=== PATIENT | female | born 1975 | race Caucasian/White ===

== ENCOUNTER → 2017-01-16 10:45 | Emergency (ER) | payer BC, OTHER ==
[~2017-01-16 10:45] MED LIST: Acetaminophen TAB* 325 MG PO ONE; Ketorolac INJ* 30 MG/ML 1 ML VIAL IV PUSH ONE; NS 0.9% 1000 ML* 1,000 ML IV ONE; Ondansetron INJ* 2 MG/ML VIAL IV ONE; Potassium Chlor TAB* 20 MEQ TAB.ER PO ONE; cefTRIAXone(*) 1 GM ADVAN ONE; cefTRIAXone(*) 1 GM in NS 0.9% 50 ML* 50 ML IVPB ONE
[2017-01-16] MEDS: NS 0.9% 1000 ML* 2,000 ML IV ONE ×2 (12:19→13:40)
[2017-01-16 12:54] LABS: Hematocrit 37 % (35-47); Hemoglobin 12.2 g/dl (12.0-16.0); Mean Corpuscular HGB Conc 33 g/dl (31-36); Mean Corpuscular Hemoglobin 30 pg (27-31); Mean Corpuscular Volume 91 fL (80-97); Mean Platelet Volume 8 um3 (7.4-10.4); Red Blood Count 4.05 10^6/ul (4.0-5.4); Red Cell Distribution Width 13 % (10.5-15); White Blood Count 15.8 10^3/ul (3.5-10.8)
--- NOTE | 2017-01-16 12:58 | RAD ---
Indication: Cough. Single frontal view of the chest performed at 1240 hours was reviewed. No prior study is available for comparison. No mediastinal shift is noted. Heart is of normal size and configuration. Lung sharma appear clear. IMPRESSION: NO ACTIVE CARDIOPULMONARY DISEASE IS NOTED.
[2017-01-16 13:06] LABS: BUN/Creatinine Ratio 16.7 (8-20); C Reactive Protein 208.4 mg/L (< 5.00); Calcium 8.7 mg/dL (8.6-10.3); EGFR African American 89.2 (>60); EGFR Non-African American 69.3 (>60); Globulin 3.3 g/dL (2-4); Potassium 3.4 mmol/L (3.5-5.0); Total Bilirubin 0.8 mg/dL (0.2-1.0); Total Protein 7.3 g/dL (6.4-8.9)
[2017-01-16 14:49] LABS: Urine Bacteria 1+ (Absent); Urine Bilirubin Negative (Negative); Urine Glucose Negative (Negative); Urine Nitrite Positive (Negative)
[2017-01-16 16:48] VITALS: BP 103/60
--- NOTE | 2017-01-17 17:50 | ED ---
Zuleima Nesbitt Edward, scribed for Nicola Hamm MD on 01/16/17 at 1143 . Influenza-Like Illness - HPI Summary HPI Summary: 41 y/o female presents to ED with influenza-like symptoms that have lasted over 1 week. Symptoms include fever, productive cough, bilateral abd pain, body aches , chills, loss of appetite, N/V. Patient took ibuprofen which relieved her chills temporarily but induced vomiting. Denies sore throat and ear pain. - History of Current Complaint Chief Complaint: EDFluSymptoms Time Seen by Provider: 01/16/17 11:33 Hx Obtained From: Patient Onset/Duration: Lasting Weeks - 1 week, Still Present Severity: Severe Associated Signs & Symptoms: Fever, Cough - Productive (phlegm), Vomiting - Allergy/Home Medications Allergies/Adverse Reactions: Allergies Allergy/AdvReac Type Severity Reaction Status Date / Time No Known Allergies Allergy Verified 01/16/17 12:50 PMH/Surg Hx/FS Hx/Imm Hx Endocrine/Hematology History: Denies: Hx Diabetes Cardiovascular History: Denies: Hx Congestive Heart Failure, Hx Hypertension, Hx Myocardial Infarction Respiratory History: Reports: Hx Asthma Infectious Disease History: Denies: Traveled Outside the [place] in Last 30 Days - Family History Known Family History: Negative: Diabetes - Social History Occupation: Employed Full-time Lives: With Family Alcohol Use: Occasionally Hx Substance Use: No Review of Systems Positive: Fever, Chills, Other - Loss of appetite Eyes: Negative ENT: Negative Negative: Sore Throat, Ear Ache Cardiovascular: Negative Positive: Cough - Productive (phlegm) Positive: Abdominal Pain - bilateral, Vomiting, Nausea Genitourinary: Negative Positive: Myalgia - Diffuse body aches Skin: Negative Neurological: Negative Psychological: Normal All Other Systems Reviewed And Are Negative: Yes Physical Exam - Summary Physical Exam Summary: VITAL SIGNS:~Reviewed. GENERAL:~ Patient is a well-developed and nourished female who is lying comfortable in the stretcher.~ Patient is not in any acute respiratory distress. Looks nauseous, dehydrated. HEAD AND FACE:~No signs of trauma.~ No ecchymosis, hematomas or skull depressions. No sinus tenderness. Rhinorrhea. Dry mucosa. Flushed in the face. EYES:~PERRLA, EOMI x 2, No injected conjunctiva, no nystagmus. EARS:~Hearing grossly intact. Ear canals and tympanic membranes are within normal limits. MOUTH:~Oropharynx within normal limits. NECK:~Supple, trachea is midline, no adenopathy, no JVD, no carotid bruit, no c- spine tenderness, neck with full ROM. CHEST:~Symmetric, no tenderness at palpation LUNGS:~Clear to auscultation bilaterally. No wheezing or crackles. CVS:~Regular rate and rhythm, S1 and S2 present, no murmurs or gallops appreciated. ABDOMEN:~Soft, non-tender. No signs of distention. No rebound no guarding, and no masses palpated. Bowel sounds are normal. EXTREMITIES:~FROM in all major joints, no edema, no cyanosis or clubbing. NEURO:~Alert and oriented x 3. No acute neurological deficits. Speech is normal and follows commands. SKIN:~Dry and warm Triage Information Reviewed: Yes Vital Signs On Initial Exam: Initial Vitals Temp Pulse Resp BP 100.8 F 113 20 119/68 01/16/17 10:48 01/16/17 10:48 01/16/17 10:48 01/16/17 10:48 Vital Signs Reviewed: Yes Diagnostics - Vital Signs Vital Signs Temp Pulse Resp BP Pulse Ox 01/16/17 10:52 100.2 F 117 20 119/68 99 01/16/17 10:48 100.8 F 113 20 119/68 - Laboratory Lab Results: Lab Results 01/16/17 01/16/17 01/16/17 Range/Units 11:43 12:25 12:25 WBC 15.8 H (3.5-10.8) 10^3/ul RBC 4.05 (4.0-5.4) 10^6/ul Hgb 12.2 (12.0-16.0) g/dl Hct 37 (35-47) % MCV 91 (80-97) fL MCH 30 (27-31) pg MCHC 33 (31-36) g/dl RDW 13 (10.5-15) % Plt Count 223 (150-450) 10^3/ul MPV 8 (7.4-10.4) um3 Neut % (Auto) 87.1 H (38-83) % Lymph % (Auto) 5.9 L (25-47) % Jasper % (Auto) 6.7 (1-9) % Eos % (Auto) 0.1 (0-6) % Baso % (Auto) 0.2 (0-2) % Absolute Neuts (auto) 13.8 H (1.5-7.7) 10^3/ul Absolute Lymphs (auto) 0.9 L (1.0-4.8) 10^3/ul Absolute Monos (auto) 1.1 H (0-0.8) 10^3/ul Absolute Eos (auto) 0 (0-0.6) 10^3/ul Absolute Basos (auto) 0 (0-0.2) 10^3/ul Absolute Nucleated RBC 0.01 10^3/ul Nucleated RBC % 0 Sodium 134 (133-145) mmol/L Potassium 3.4 L (3.5-5.0) mmol/L Chloride 102 (101-111) mmol/L Carbon Dioxide 24 (22-32) mmol/L Anion Gap 8 (2-11) mmol/L BUN 15 (6-24) mg/dL Creatinine 0.90 (0.51-0.95) mg/dL Est GFR ( Amer) 89.2 (>60) Est GFR (Non-Af Amer) 69.3 (>60) BUN/Creatinine Ratio 16.7 (8-20) Glucose 106 H (70-100) mg/dL Lactic Acid (0.5-2.0) mmol/L Calcium 8.7 (8.6-10.3) mg/dL Total Bilirubin 0.80 (0.2-1.0) mg/dL AST 13 (13-39) U/L ALT 18 (7-52) U/L Alkaline Phosphatase 56 (34-104) U/L C-Reactive Protein 208.40 H (< 5.00) mg/L Total Protein 7.3 (6.4-8.9) g/dL Albumin 4.0 (3.2-5.2) g/dL Globulin 3.3 (2-4) g/dL Albumin/Globulin Ratio 1.2 (1-3) Urine Color Urine Appearance Urine pH (5-9) Ur Specific West (1.010-1.030) Urine Protein (Negative) Urine Ketones (Negative) Urine Blood (Negative) Urine Nitrate (Negative) Urine Bilirubin (Negative) Urine Urobilinogen (Negative) Ur Leukocyte Esterase (Negative) Urine WBC (Auto) (Absent) Urine RBC (Auto) (Absent) Ur Squamous Epith Cells (Absent) Urine Bacteria (Absent) Urine Glucose (Negative) Lyme Disease Serology (Negative) Influenza A (Rapid) Negative (Negative) Influenza B (Rapid) Negative (Negative) Group A Strep Rapid (Negative) 01/16/17 01/16/17 01/16/17 Range/Units 12:25 12:25 12:41 WBC (3.5-10.8) 10^3/ul RBC (4.0-5.4) 10^6/ul Hgb (12.0-16.0) g/dl Hct (35-47) % MCV (80-97) fL MCH (27-31) pg MCHC (31-36) g/dl RDW (10.5-15) % Plt Count (150-450) 10^3/ul MPV (7.4-10.4) um3 Neut % (Auto) (38-83) % Lymph % (Auto) (25-47) % Jasper % (Auto) (1-9) % Eos % (Auto) (0-6) % Baso % (Auto) (0-2) % Absolute Neuts (auto) (1.5-7.7) 10^3/ul Absolute Lymphs (auto) (1.0-4.8) 10^3/ul Absolute Monos (auto) (0-0.8) 10^3/ul Absolute Eos (auto) (0-0.6) 10^3/ul Absolute Basos (auto) (0-0.2) 10^3/ul Absolute Nucleated RBC 10^3/ul Nucleated RBC % Sodium (133-145) mmol/L Potassium (3.5-5.0) mmol/L Chloride (101-111) mmol/L Carbon Dioxide (22-32) mmol/L Anion Gap (2-11) mmol/L BUN (6-24) mg/dL Creatinine (0.51-0.95) mg/dL Est GFR ( Amer) (>60) Est GFR (Non-Af Amer) (>60) BUN/Creatinine Ratio (8-20) Glucose (70-100) mg/dL Lactic Acid 0.8 (0.5-2.0) mmol/L Calcium (8.6-10.3) mg/dL Total Bilirubin (0.2-1.0) mg/dL AST (13-39) U/L ALT (7-52) U/L Alkaline Phosphatase (34-104) U/L C-Reactive Protein (< 5.00) mg/L Total Protein (6.4-8.9) g/dL Albumin (3.2-5.2) g/dL Globulin (2-4) g/dL Albumin/Globulin Ratio (1-3) Urine Color Urine Appearance Urine pH (5-9) Ur Specific West (1.010-1.030) Urine Protein (Negative) Urine Ketones (Negative) Urine Blood (Negative) Urine Nitrate (Negative) Urine Bilirubin (Negative) Urine Urobilinogen (Negative) Ur Leukocyte Esterase (Negative) Urine WBC (Auto) (Absent) Urine RBC (Auto) (Absent) Ur Squamous Epith Cells (Absent) Urine Bacteria (Absent) Urine Glucose (Negative) Lyme Disease Serology Negative (Negative) Influenza A (Rapid) (Negative) Influenza B (Rapid) (Negative) Group A Strep Rapid Negative (Negative) 01/16/17 Range/Units 14:25 WBC (3.5-10.8) 10^3/ul RBC (4.0-5.4) 10^6/ul Hgb (12.0-16.0) g/dl Hct (35-47) % MCV (80-97) fL MCH (27-31) pg MCHC (31-36) g/dl RDW (10.5-15) % Plt Count (150-450) 10^3/ul MPV (7.4-10.4) um3 Neut % (Auto) (38-83) % Lymph % (Auto) (25-47) % Jasper % (Auto) (1-9) % Eos % (Auto) (0-6) % Baso % (Auto) (0-2) % Absolute Neuts (auto) (1.5-7.7) 10^3/ul Absolute Lymphs (auto) (1.0-4.8) 10^3/ul Absolute Monos (auto) (0-0.8) 10^3/ul Absolute Eos (auto) (0-0.6) 10^3/ul Absolute Basos (auto) (0-0.2) 10^3/ul Absolute Nucleated RBC 10^3/ul Nucleated RBC % Sodium (133-145) mmol/L Potassium (3.5-5.0) mmol/L Chloride (101-111) mmol/L Carbon Dioxide (22-32) mmol/L Anion Gap (2-11) mmol/L BUN (6-24) mg/dL Creatinine (0.51-0.95) mg/dL Est GFR ( Amer) (>60) Est GFR (Non-Af Amer) (>60) BUN/Creatinine Ratio (8-20) Glucose (70-100) mg/dL Lactic Acid (0.5-2.0) mmol/L Calcium (8.6-10.3) mg/dL Total Bilirubin (0.2-1.0) mg/dL AST (13-39) U/L ALT (7-52) U/L Alkaline Phosphatase (34-104) U/L C-Reactive Protein (< 5.00) mg/L Total Protein (6.4-8.9) g/dL Albumin (3.2-5.2) g/dL Globulin (2-4) g/dL Albumin/Globulin Ratio (1-3) Urine Color Yellow Urine Appearance Cloudy Urine pH 5.0 (5-9) Ur Specific West 1.012 (1.010-1.030) Urine Protein 2+(100 mg/dl) H (Negative) Urine Ketones Trace H (Negative) Urine Blood 3+ H (Negative) Urine Nitrate Positive H (Negative) Urine Bilirubin Negative (Negative) Urine Urobilinogen Negative (Negative) Ur Leukocyte Esterase 3+ H (Negative) Urine WBC (Auto) 3+(>20/hpf) H (Absent) Urine RBC (Auto) 2+(6-10/hpf) H (Absent) Ur Squamous Epith Cells Present H (Absent) Urine Bacteria 1+ H (Absent) Urine Glucose Negative (Negative) Lyme Disease Serology (Negative) Influenza A (Rapid) (Negative) Influenza B (Rapid) (Negative) Group A Strep Rapid (Negative) Result Diagrams: 01/16/17 12:25 01/16/17 12:25 Lab Statement: Any lab studies that have been ordered have been reviewed, and results considered in the medical decision making process. - Radiology CHEST XRAY Xray Interpretation: No Acute Changes - No active cardiopulmonary disease noted. Radiology Interpretation Completed By: Radiologist Flu Symptom Course/Dx - Course Assessment/Plan: 41 y/o female presents to ED with influenza-like symptoms that have lasted over 1 week. Symptoms include fever, productive cough, bilateral abd pain, body aches, chills, loss of appetite, N/V. Patient took ibuprofen which relieved her chills temporarily but induced vomiting. Denies sore throat and ear pain. Test results WNL except WBC 15.8, potassium 3.4. UA positive for UTI. Influenza A and B, and rapid strep are negative. CXR shows no acute pathology. In the ED course, the patient was hydrated with 3 liters of IV fluids , given Tylenol and Rocephin for UTI. At this point, she is feeling better, much improved. She was discharged home with a follow up with her PCP. Discharged with a prescription for Bactrim. She is hemodynamically stable and AOx3. - Diagnoses Differential Diagnosis/HQI/PQRI: Positive: Bronchitis, Influenza, Upper Respiratory Infection, Other - UTI Provider Diagnoses: UTI (urinary tract infection) Discharge - Discharge Plan Condition: Stable Disposition: HOME Prescriptions: Sulfamethox/Trimethoprim DS* [Bactrim DS 800/160 TAB*] 1 tab PO BID #10 tab Patient Education Materials: Urinary Tract Infection in Women (ED) Referrals: No Primary Care Phys,NOPCP [Primary Care Provider] - [facility] [place]Outside] The documentation as recorded by the Zuleima lunsford Edward accurately reflects the service I personally performed and the decisions made by , Nicola Hamm MD.
--- NOTE | 2017-01-20 09:13 | PN ---
Progress Note - Progress Note Note: Patient was diagnosed with a UTI while in ED. She was d/c on Bactrim. Urinary culture results obtained and showed resistance to Bactrim. Was called at 9:08am and discussed changing medication. Patient states her symptoms improved somewhat but not completely. Ciprofloxacin was called in to pharmacy and patient agreed to d/c Bactrim and take Cipro for 3 days. If still having symptoms to take the total 5 doses of Cipro. Aware of worsening signs and symptoms and to return if they do not improve. Was also informed that strep, flu and lyme were all negative. No further action or changes needed at this time.
== END | disposition home or self-care (01) ==
LOC: ED 10:45
DX: N39.0 Urinary tract infection, site not specified (principal); R50.9 Fever, unspecified; R05 Cough; R11.10 Vomiting, unspecified
CPT/HCPCS: 36415; 71010; 80053; 81003; 81015; 83605; 85025; 86140; 86618; 87077; 87086; 87186; 87502; 87651; 96374; 99282; A9270-GY; J0696; J1885; J2405

== ENCOUNTER 2019-06-03 12:02 | Emergency (ER) | payer OTHER ==
[2019-06-03 12:23] VITALS: BP 134/89
--- NOTE | 2019-06-03 13:13 | UC ---
Throat Pain/Nasal Arie HPI - HPI Summary HPI Summary: 43-year-old female presents with 4 day history of sore throat, general malaise, subjective fever, mild nasal congestion, postnasal drip, and mild nausea. Denies ear pain, dysphagia, chest pain, shortness of breath, cough, abdominal pain, vomiting, or diarrhea. - History of Current Complaint Chief Complaint: UCGeneralIllness Stated Complaint: SORE THROAT Time Seen by Provider: 06/03/19 12:43 Hx Obtained From: Patient Hx Last Menstrual Period: due Pain Intensity: 0 - Allergies/Home Medications Allergies/Adverse Reactions: Allergies Allergy/AdvReac Type Severity Reaction Status Date / Time No Known Allergies Allergy Verified 06/03/19 12:23 Home Medications: Home Medications Ibuprofen 400 mg PO Q4H 06/03/19 [History Confirmed 06/03/19] PMH/Surg Hx/FS Hx/Imm Hx Previously Healthy: Yes - Denies significant PMH - Surgical History Surgical History: Yes Surgery Procedure, Year, and Place: disectomy - Family History Known Family History: Positive: Non-Contributory - Social History Occupation: Employed Full-time Lives: With Family Alcohol Use: Occasionally Substance Use Type: None Smoking Status (MU): Never Smoked Tobacco Review of Systems All Other Systems Reviewed And Are Negative: Yes Constitutional: Positive: Fever - subjective Eyes: Negative: Drainage, Eye Redness ENT: Positive: Sore Throat, Nasal Discharge, Sinus Congestion, Sinus Pain/ Tenderness. Negative: Ear Ache Respiratory: Positive: Cough. Negative: Shortness Of Breath Cardiovascular: Negative: Palpitations, Chest Pain Gastrointestinal: Negative: Abdominal Pain, Vomiting, Diarrhea, Nausea Genitourinary: Negative: Dysuria, Hematuria, Frequency, Urgency Musculoskeletal: Positive: Negative Neurological: Positive: Negative Is Patient Immunocompromised?: No Physical Exam - Summary Physical Exam Summary: GENERAL APPEARANCE: Well developed, well nourished, alert and cooperative, and appears to be in no acute distress. EYES: Conjunctiva clear. No drainage. EARS: External auditory canals and tympanic membranes clear, hearing grossly intact. NOSE: Mild-moderate nasal congestion. No nasal discharge. THROAT: Mild pharyngeal erythema with post-nasal drip. No tonsilar inflammation , swelling, exudate, or lesions. Uvula midline. NECK: Neck supple, non-tender without lymphadenopathy. CARDIAC: Normal S1 and S2. No S3, S4 or murmurs. Rhythm is regular. There is no peripheral edema, cyanosis or pallor. Extremities are warm and well perfused. Capillary refill is less than 2 seconds. Peripheral pulses intact. LUNGS: Clear to auscultation without rales, rhonchi, wheezing or diminished breath sounds. ABDOMEN: Positive bowel sounds. Soft, nondistended, nontender. No guarding or rebound. No masses or hepatosplenomegally. MUSKULOSKELETAL: ROM intact to all extremities. No joint erythema or tenderness. Normal muscular development. Normal gait. SKIN: Skin normal color, texture and turgor with no lesions or eruptions. Triage Information Reviewed: Yes Vital Signs: Initial Vital Signs Temp 98.3 F 06/03/19 12:16 Pulse 84 06/03/19 12:16 Resp 18 06/03/19 12:16 BP 134/89 06/03/19 12:16 Pulse Ox 100 06/03/19 12:16 Vital Signs Reviewed: Yes Throat Pain/Nasal Course/Dx - Course Course Of Treatment: 43-year-old female presents with 4 day history of sore throat, general malaise, subjective fever, mild nasal congestion, postnasal drip, and mild nausea. Denies ear pain, dysphagia, chest pain, shortness of breath, cough, abdominal pain, vomiting, or diarrhea. Afebrile. Vital signs stable. Patient had mild to moderate nasal congestion, mild pharyngeal erythema with postnasal drip, no tonsillar swelling or exudate, no cervical lymphadenopathy, clear bilateral breath sounds, and otherwise unremarkable exam. Rapid strep test was negative. Reviewed results with the patient. Recommending symptomatic treatment for a viral URI. She is to follow-up with her primary care provider in 5-7 days if symptoms persist. Anticipatory guidance and warning signs are reviewed with the patient. Verbalizes understanding and agrees with plan of care. - Differential Dx/Diagnosis Differential Diagnosis/HQI/PQRI: Mononucleosis, Pharyngitis, Tonsillitis, URI Provider Diagnosis: Viral URI Discharge ED - Sign-Out/Discharge Documenting (check all that apply): Patient Departure All imaging exams completed and their final reports reviewed: No Studies - Discharge Plan Condition: Stable Disposition: HOME Patient Education Materials: Upper Respiratory Infection (ED) Referrals: Marleny Her MD [Primary Care Provider] - 5 Days Additional Instructions: The rapid strep test was performed in the clinic today was negative. Your history and exam are consistent with a viral upper respiratory infection. Viral infections do not respond to antibiotics and are limited to the treatment of symptoms. Viral infections typically run their course in 7-10 days. Drink plenty of fluids to avoid dehydration especially if you are running any fever. Use a saline rinse kit such as Neti Pot or NeilMed at least twice a day to help thin secretions and promote drainage of the sinuses. Contiunue to use your fluticasone (Flonase) nasal spray 2 sprays each nostril once daily. Take over the counter acetaminophen (Tylenol) or ibuprofen (Advil, Motrin) according to directions as needed for pain or fever. Use salt water gargles several times a day if you have a sore throat. You may also use Chloraseptic spray or Cepacol lonzenges according to directions which contain a numbing medication and can provide some temporary relief from your sore throat. Follow up with your primary care provider in 5-7 days if symptoms persist. Seek immediate medical attention in the emergency room if you have fever greater than 100.5 F despite taking acetaminophen or ibuprofen, have chest pain , difficulty breathing, are unable to swallow, or have any worsening of symptoms. - Billing Disposition and Condition Condition: STABLE Disposition: Home - Attestation Statements Provider Attestation: Per institutional requirements, I have reviewed the chart, however, I was not consulted specifically or made aware of this patient by the midlevel provider. I did not personally evaluate, interact with , or disposition this patient.
== END 2019-06-03 13:18 | disposition home or self-care (01) ==
LOC: UCEAST 12:02
DX: J06.9 Acute upper respiratory infection, unspecified (principal); R11.0 Nausea
CPT/HCPCS: 87651; 99211; G0463

== ENCOUNTER 2019-06-26 08:09 | Emergency (ER) | payer OTHER ==
--- NOTE | 2019-06-26 08:18 | UC ---
Upper Extremity HPI - HPI Summary HPI Summary: tripped and fell over her dog last night pain in left wrist - History of Current Complaint Chief Complaint: UCUpperExtremity Stated Complaint: ARM INJURY Time Seen by Provider: 06/26/19 08:09 Hx Obtained From: Patient Hx Last Menstrual Period: due ?: No Onset/Duration: Sudden Onset, Lasting Hours - 8, Still Present Severity Initially: Moderate Severity Currently: Moderate Location Of Pain: Is Discrete @ - left ulnar aspect of wrist Character: Aching Aggravating Factor(s): Movement Alleviating Factor(s): Rest Associated Signs And Symptoms: Positive: Swelling Related History: Dominant Hand Right - Allergies/Home Medications Allergies/Adverse Reactions: Allergies Allergy/AdvReac Type Severity Reaction Status Date / Time No Known Allergies Allergy Verified 06/26/19 08:21 PMH/Surg Hx/FS Hx/Imm Hx Previously Healthy: Yes - Surgical History Surgical History: Yes Surgery Procedure, Year, and Place: disectomy - Family History Known Family History: Positive: Non-Contributory Negative: Diabetes - Social History Occupation: Works From/At Home Lives: With Family Alcohol Use: Occasionally Substance Use Type: None Smoking Status (MU): Never Smoked Tobacco Review of Systems All Other Systems Reviewed And Are Negative: Yes Constitutional: Positive: Negative Skin: Positive: Negative Eyes: Positive: Negative ENT: Positive: Negative Respiratory: Positive: Negative Cardiovascular: Positive: Negative Gastrointestinal: Positive: Negative Genitourinary: Positive: Negative Motor: Positive: Decreased ROM - left wrist Neurovascular: Positive: Negative Musculoskeletal: Positive: Arthralgia - left ulnar aspect of wrist Neurological: Positive: Negative Psychological: Positive: Negative Is Patient Immunocompromised?: No Physical Exam Triage Information Reviewed: Yes Appearance: Well-Appearing, No Pain Distress, Well-Nourished Vital Signs Reviewed: Yes Eye Exam: Normal Eyes: Positive: Conjunctiva Clear ENT Exam: Normal ENT: Positive: Normal ENT inspection, Hearing grossly normal. Negative: Trismus , Muffled voice, Hoarse voice Dental Exam: Normal Neck exam: Normal Neck: Positive: Supple, Nontender Respiratory Exam: Normal Respiratory: Positive: Chest non-tender, No respiratory distress, No accessory muscle use Cardiovascular Exam: Normal Cardiovascular: Positive: RRR, Pulses Normal, Brisk Capillary Refill Musculoskeletal Exam: Other Musculoskeletal: Positive: Strength Limited @ - left wrist, ROM Limited @ - left wrist Neurological Exam: Normal Neurological: Positive: Alert, Muscle Tone Normal Psychological Exam: Normal Skin Exam: Normal Diagnostics - Radiology No standard instances Radiology Interpretation Completed By: Radiologist - comminuted fx of distal radius Re-Evaluation - Re-Evaluation First Eval Change: Improved - sling and cockup splint applied n/m/c intact Upper Extremity Course/Dx - Course Course Of Treatment: rice, immobilization, ibuprofen for pain follow with ortho this week - Differential Dx/Diagnosis Provider Diagnosis: Fracture of left wrist Discharge ED - Sign-Out/Discharge Documenting (check all that apply): Patient Departure All imaging exams completed and their final reports reviewed: Yes - Discharge Plan Condition: Stable Disposition: HOME Patient Education Materials: Ibuprofen (By mouth), Wrist Fracture in Adults (ED ), R.I.C.E. Treatment (ED) Referrals: Alexys Tello MD [Medical Doctor] - 2 Days Marleny Her MD [Primary Care Provider] - - Billing Disposition and Condition Condition: STABLE Disposition: Home - Attestation Statements Provider Attestation: I was available for consult. This patient was seen by the JENNIFER. The patient was not presented to , seen by or examined by ut -Juan Antonio Perdue MD
[2019-06-26 08:21] VITALS: BP 119/85
== END 2019-06-26 09:10 | disposition home or self-care (01) ==
LOC: UCEAST 08:09
DX: S52.502A Unspecified fracture of the lower end of left radius, initial encounter for closed fracture (principal); W01.0XXA Fall on same level from slipping, tripping and stumbling without subsequent striking against object, initial encounter; Y92.9 Unspecified place or not applicable
CPT/HCPCS: 99211; G0463